=== PATIENT | female | born 1930 | race Caucasian/White ===

== ENCOUNTER 2016-04-09 13:52 | Emergency (ER) | payer OTHER ==
[~2016-04-09] VITALS: Ht 157.5 cm; Wt 63.5 kg
[2016-04-09 13:52] VITALS: BP 125/77; PULSE 85; RESP 14; TEMP 98.2; O2SAT 98
--- NOTE | 2016-04-09 13:52 | NUR ---
Pt report received from ED[facility] [place]. Pt c/o Left Hip pain x 2 weeks. Pt denies trauma, no recent falls reported. Pt with trach stoma. No respiratory difficulty noted.
--- NOTE | 2016-04-09 13:52 | NUR ---
Placed in room 08. Placed on groundwater monitoring technician, blood pressure machine and pulse oximeter. To gown for exam. Side rails up. Report given to EDIN [place].
--- NOTE | 2016-04-09 14:10 | NUR ---
Dr. Romero at bedside to assess pt.
[2016-04-09 14:35] LABS: BASOPHILS % (AUTO) 0.6 % (0.0-2.0); EOSINOPHILS # (AUTO) 0.3 K/uL (0.0-0.4); EOSINOPHILS % (AUTO) 3.6 % (0.0-4.0); HEMATOCRIT 37.6 % (36-48); HEMOGLOBIN 12.9 g/dL (12.0-16.0); LYMPHOCYTES # (AUTO) 0.8 K/uL (1.0-5.5); MEAN CORPUSCULAR HEMOGLOBIN 32 pg (27-31); MEAN CORPUSCULAR HGB CONC 34 % (32-36); MEAN CORPUSCULAR VOLUME 94 fL (79.0-98.0); MONOCYTES # (AUTO) 0.6 K/uL (0.0-1.0); MONOCYTES % (AUTO) 8.2 % (1.7-9.3); NEUTROPHILS # (AUTO) 5.9 K/uL (1.8-7.7); NEUTROPHILS % (AUTO) 76.6 % (40.0-70.0); PLATELET COUNT (AUTO) 207 K/uL (130-430); RED BLOOD CELL COUNT(AUTO) 4.02 MIL/uL (4.2-6.2); RED CELL DISTRIBUTION WIDTH 12.1 % (9.0-15.0); WHITE BLOOD COUNT (AUTO) 7.6 K/uL (4.8-10.8)
--- NOTE | 2016-04-09 14:45 | NUR ---
Pt to x-ray via stretcher.
[2016-04-09 14:49] LABS: PROTHROMBIN TIME 10.4 SECS (9.5-12.5)
[2016-04-09 14:50] LABS: ANION GAP 8 (5-15); CALCIUM 10.7 mg/dL (8.4-11.0); CHLORIDE 103 mmol/L (98-107); CREATININE 1.19 mg/dL (0.55-1.30); GLUCOSE 98 mg/dL (70-99); POTASSIUM 3.7 mmol/L (3.5-5.1); SODIUM SERUM 139 mmol/L (136-145); UREA NITROGEN, BLOOD 18 mg/dL (8-21)
--- NOTE | 2016-04-09 14:55 | NUR ---
Pt returns from x-ray. No needs verbalized at this time.
[2016-04-09 15:07] LABS: ALANINE AMINOTRANSFERASE 20 U/L (12-78); ALBUMIN 4.3 g/dL (3.4-4.8); ASPARTATE AMINOTRANSFERASE 25 U/L (10-37); FREE T4 (FREE THYROXINE) 1.1 ng/dL (0.6-1.6); TOTAL BILIRUBIN 0.9 mg/dL (0.0-1.0); TOTAL PROTEIN, SERUM 7.9 g/dL (6.4-8.3)
--- NOTE | 2016-04-09 15:10 | NUR ---
Assisted pt onto bedpan.
[2016-04-09 15:11] LABS: ALCOHOL, BLOOD < 3 mg/dL (<10)
--- NOTE | 2016-04-09 15:22 | NUR ---
Assisted pt onto bedpan. Urine specimen collected and sent to lab.
--- NOTE | 2016-04-09 15:34 | NUR ---
Pt to CT via stretcher.
[2016-04-09 15:41] LABS: BILIRUBIN,URINE NEGATIVE (NEGATIVE); CLARITY/URINE CLEAR (CLEAR); COLOR,URINE YELLOW (YELLOW); GLUCOSE,URINE NEGATIVE (NEGATIVE); KETONES,URINE NEGATIVE (NEGATIVE); LEUKOCYTE ESTERASE ,URINE NEGATIVE (NEGATIVE); NITRITE, URINE NEGATIVE (NEGATIVE); PH,URINE 7.5 (5.0-8.0); PROTEIN URINE NEGATIVE (NEGATIVE); UROBILINOGEN,URINE 0.2 (0.2-1.0)
[2016-04-09 15:45] LABS: BLOOD, URINE TRACE (NEGATIVE)
--- NOTE | 2016-04-09 15:50 | NUR ---
Pt returns from CT. Pt denies c/o pain or discomfort, pain to left hip with movemtent. No needs verbalized at this time. Family member at bedside.
[2016-04-09 15:51] LABS: OPIATE, URINE POSITIVE (NEG <=100)
[2016-04-09 15:52] LABS: BARBITURATE, URINE NEGATIVE (NEG <=200); BENZODIAZEPINE, URINE NEGATIVE (NEG <=150); CANNABINOID, URINE NEGATIVE (NEG <=50); COCAINE, URINE NEGATIVE (NEG <=150); METHAMPHETAMINES SCREEN,URINE NEGATIVE (NEG <=500); PHENCYCLIDINE SCREEN,URINE NEGATIVE (NEG <=25); UR TRICYCLIC ANTIDEPRESSANTS NEGATIVE (NEG <=300); URINE AMPHETAMINE NEGATIVE (NEG <=500); URINE METHADONE NEGATIVE (NEG <=200); URINE OXYCODONE SCREEN NEGATIVE (NEG <=100); URINE PROPOXYPHENE SCREEN NEGATIVE (NEG <=300)
--- NOTE | 2016-04-09 16:00 | NUR ---
Dr. Romero speaking to Pt.'s Son regarding POC.
[2016-04-09 16:02] LABS: RBC,URINE NONE SEEN /HPF (0-3); WBC,URINE 0-3 /HPF (0-3)
[2016-04-09 16:03] LABS: BACTERIA,URINE RARE /HPF (None Seen); MUCUS,URINE None Seen /LPF (None Seen)
--- NOTE | 2016-04-09 16:30 | NUR ---
Pt assisted to bedpan.
--- NOTE | 2016-04-09 16:40 | NUR ---
Linens soiled from urine in bedpan. Bed lyman removed, pt cleaned, and clean linens and gown. Placed. No needs verbalized at this time.
[2016-04-09 17:20] VITALS: BP 137/73; PULSE 83; RESP 18; TEMP 97.9; O2SAT 98
--- NOTE | 2016-04-09 17:20 | NUR ---
Patient given written and verbal discharge instructions and verbalizes understanding. ER MD discussed with patient the results and treatment provided. Patient in stable condition. ID arm band removed. Rx of [employer] given. Patient educated on pain management and to follow up with PMD. Pain Scale 2/10. Opportunity for questions provided and answered.
== END 2016-04-09 17:20 | disposition home or self-care (01) ==
LOC: SED 13:52
DX: S32.302A Unspecified fracture of left ilium, initial encounter for closed fracture (principal); I10 Essential (primary) hypertension; X58.XXXA Exposure to other specified factors, initial encounter; Y93.89 Activity, other specified; Y92.89 Other specified places as the place of occurrence of the external cause; Y99.8 Other external cause status
CPT/HCPCS: 36415; 71010; 72192; 73510; 74000; 80053; 80307; 81000; 82140; 83605; 83880; 84439; 84484; 85025; 85610; 87040; 93005; 99285; G0482